=== PATIENT | female | born 1940 | race Caucasian/White ===

== ENCOUNTER 2017-08-29 10:54 | Day surgery (SDC) | payer OTHER ==
[~2017-08-29] VITALS: Ht 160 cm; Wt 46.8 kg
[~2017-08-29 10:54] MED LIST: CLON-365 PO; FENT1PAT77 TD; FORTEO; GABA600T2 PO; HYDR-3237 PO; ONDA4TAB13 SL; SERT50TA5 PO; VENL150T PO
[2017-08-29] MEDS ORDERED: arthritis (11:39)
[2017-08-29 11:43] VITALS: BP 171/91
[2017-08-29] MEDS ORDERED: LACTATED RINGERS 1,000 ML IV SCH (12:12)
[2017-08-29] MEDS ORDERED: MIDAZOLAM 1 MG/ML, 2ML ONE ×2 (13:26→13:54)
[2017-08-29] MEDS ORDERED: FENTANYL PF 100 MCG/2ML ONE (13:26)
[2017-08-29] MEDS ORDERED: PROPOFOL 10 MG/ML, 20ML ONE (13:27)
[2017-08-29] MEDS ORDERED: CEFAZOLIN 1,000 MG ONE ×2 (13:27)
[2017-08-29] MEDS ORDERED: LIDOCAINE-MPF 2% ,5ML ONE (13:27)
[2017-08-29] MEDS ORDERED: SODIUM CHLORIDE 0.9% PF 10ML ONE (13:28)
[2017-08-29] MEDS ORDERED: ONDANSETRON 2MG/ML, 2ML ONE (13:57)
[2017-08-29] MEDS ORDERED: DEXAMETHASONE 4 MG/ML, 1ML ONE (13:57)
[2017-08-29] MEDS ORDERED: MEPERIDINE/PF 25MG/0.5ML IVPush PRN (14:30)
[2017-08-29] MEDS ORDERED: PROMETHAZINE 25 MG/ML, 1ML IV PRN (14:30)
[2017-08-29] MEDS ORDERED: FENTANYL PF 100 MCG/2ML IV PRN (14:30)
[2017-08-29] MEDS ORDERED: HYDROmorphone 1 MG/ML, 1ML IV PRN (14:30)
[2017-08-29] MEDS ORDERED: LABETALOL 5MG/ML, 20ML IV PRN (14:30)
[2017-08-29] MEDS ORDERED: hydrALAzine 20 MG/ML, 1ML IV PRN (14:30)
[2017-08-29] MEDS ORDERED: ONDANSETRON 2MG/ML, 2ML IVPush PRN (14:30)
[2017-08-29] MEDS ORDERED: OXYcodone 5 MG/5 ML ORAL.SOL UDC ONE ×2 (14:43→15:45)
[2017-08-29] MEDS: OXYcodone 5 MG/5 ML ORAL.SOL UDC PO PRN ×2 (14:56→15:45)
[2017-08-29] MEDS ORDERED: hydrALAzine 20 MG/ML, 1ML ONE (14:58)
== END 2017-08-29 16:40 ==
LOC: OUT 10:54
PROVIDERS: ATTEND Surgery Vascular Surgery
DX: M31.6 Other giant cell arteritis (principal); I10 Essential (primary) hypertension
CPT/HCPCS: 37609; 88305; 93005; J0360; J0690; J1100; J2250; J2405; J2704; J3010; J3490; J7120

== ENCOUNTER → 2017-11-18 | Outpatient (CLI) | payer OTHER ==
[~2017-11-18] MED LIST changes: +arthritis
== END | disposition home or self-care (01) ==
LOC: RAD 17:14
PROVIDERS: ATTEND Nurse Practitioner
DX: M79.604 Pain in right leg (principal); M79.89 Other specified soft tissue disorders; R60.0 Localized edema

== ENCOUNTER 2017-11-26 09:22 | Emergency (ER) | payer OTHER ==
[~2017-11-26] VITALS: Ht 160 cm; Wt 47.0 kg
[2017-11-26] MEDS ORDERED: OXYcodone/APAP 5/325MG TABLET ONE (09:55)
[2017-11-26] MEDS ORDERED: OXYcodone/APAP 5/325MG TABLET PO ONE (10:00)
[2017-11-26 10:18] LABS: BASOPHILS # (AUTO) 0.06 x10^3/uL (0-0.1); BASOPHILS % (AUTO) 1 % (0-1); EOSINOPHILS # (AUTO) 0.35 x10^3/uL (0-0.4); EOSINOPHILS % (AUTO) 7 % (1-7); LYMPHOCYTES # (AUTO) 1.41 x10^3/uL (1-3.4); LYMPHOCYTES % (AUTO) 27 % (22-44); MD NO; MEAN CORPUSCULAR HEMOGLOBIN 33.6 pg (27.0-34.8); MEAN CORPUSCULAR HGB CONC 34.3 g/dL (32.4-35.8); MEAN PLATELET VOLUME 9.5 fL (7.4-10.4); MONOCYTES # (AUTO) 0.46 x10^3/uL (0.2-0.8); MONOCYTES % (AUTO) 9 % (2-9); NEUTROPHILS # (AUTO) 2.97 x10^3/uL (1.8-6.8); NEUTROPHILS % (AUTO) 57 % (42-75); PLATELET COUNT 252 x10^3/uL (130-400); RED BLOOD COUNT 3.31 x10^6/uL (3.82-5.3); RED CELL DISTRIBUTION WIDTH 13.9 % (9.6-15.2)
[2017-11-26 10:22] LABS: ALANINE AMINOTRANSFERASE 19 U/L (12-78); ALBUMIN 3.3 g/dL (3.4-5.0); ANION GAP 7 mmol/L (5-15); CALCIUM 8.4 mg/dL (8.5-10.1); CHLORIDE 110 mmol/L (98-107)
[2017-11-26 10:27] LABS: ALKALINE PHOSPHATASE 108 U/L (45-117); BILIRUBIN,TOTAL 0.3 mg/dL (0.2-1.0); TOTAL PROTEIN 6.3 g/dL (6.4-8.2)
[2017-11-26 11:46] VITALS: BP 122/66
== END 2017-11-26 11:48 | disposition home or self-care (01) ==
LOC: ED 09:44
DX: R60.0 Localized edema (principal); M79.671 Pain in right foot; M19.90 Unspecified osteoarthritis, unspecified site
CPT/HCPCS: 36415; 71045; 80053; 83880; 85025; 99285

== ENCOUNTER 2017-12-02 11:15 | Inpatient (IN) | payer OTHER ==
[~2017-12-02] VITALS: Ht 157.5 cm; Wt 48.0 kg
[2017-12-02] MEDS ORDERED: SODIUM CHLORIDE FLUSH 10ML SYR IVF ONE ×2 (12:00→13:30)
[2017-12-02 12:17] LABS: BASOPHILS # (AUTO) 0.02 x10^3/uL (0-0.1); BASOPHILS % (AUTO) 0 % (0-1); EOSINOPHILS % (AUTO) 5 % (1-7); LYMPHOCYTES # (AUTO) 0.76 x10^3/uL (1-3.4); LYMPHOCYTES % (AUTO) 9 % (22-44); MD NO; MEAN CORPUSCULAR HEMOGLOBIN 33.7 pg (27.0-34.8); MEAN CORPUSCULAR HGB CONC 34.2 g/dL (32.4-35.8); MEAN CORPUSCULAR VOLUME 98.7 fL (80-100); MEAN PLATELET VOLUME 9.3 fL (7.4-10.4); MONOCYTES # (AUTO) 0.59 x10^3/uL (0.2-0.8); MONOCYTES % (AUTO) 7 % (2-9); NEUTROPHILS # (AUTO) 6.45 x10^3/uL (1.8-6.8); NEUTROPHILS % (AUTO) 78 % (42-75); PLATELET COUNT 307 x10^3/uL (130-400); RED BLOOD COUNT 3.65 x10^6/uL (3.82-5.3); RED CELL DISTRIBUTION WIDTH 14.2 % (9.6-15.2)
[2017-12-02 12:27] LABS: CHLORIDE 108 mmol/L (98-107)
[2017-12-02] MEDS ORDERED: MORPHINE SULFATE 4 MG/ML, 1ML IVPush PRN (12:30)
[2017-12-02 12:34] LABS: ALANINE AMINOTRANSFERASE 18 U/L (12-78); ALBUMIN 3.8 g/dL (3.4-5.0); ALKALINE PHOSPHATASE 110 U/L (45-117); ANION GAP 8 mmol/L (5-15); BILIRUBIN,TOTAL 0.5 mg/dL (0.2-1.0); CALCIUM 9.8 mg/dL (8.5-10.1); CREATININE 1.06 mg/dL (0.55-1.02)
[2017-12-02] MEDS ORDERED: CEFTRIAXONE PMX 1GM/50ML 50 ML ONE (12:34)
[2017-12-02] MEDS ORDERED: SULF1TAB24 PO (12:55)
[2017-12-02] MEDS ORDERED: CEPH-368 PO (12:55)
[2017-12-02] MEDS ORDERED: GUAIFENESIN/DM 200-20MG, 10ML UDC PO PRN (13:00)
[2017-12-02] MEDS ORDERED: ONDANSETRON 2MG/ML, 2ML IVPush ONE (13:00)
[2017-12-02] MEDS ORDERED: ONDANSETRON ODT 4 MG PO PRN (13:00)
[2017-12-02] MEDS ORDERED: POLYETHYLENE GLYCOL 17 GM PACKET PO PRN (13:00)
[2017-12-02] MEDS ORDERED: ONDANSETRON 2MG/ML, 2ML IVPush PRN (13:00)
[2017-12-02] MEDS ORDERED: CEFTRIAXONE PMX 1GM/50ML 50 ML IVPB ONE (13:00)
[2017-12-02] MEDS ORDERED: VANCOMYCIN PER PHARMACY MC PRN (14:00)
[2017-12-02] MEDS: SODIUM CHLORIDE 0.9% 1,000 ML IV SCH ×2 (15:39→21:55)
[2017-12-02] MEDS: AMPICILLIN/SULBACTAM 3 GM in SODIUM CHLORIDE 0.9% 100 ML IV SCH ×2 (15:39→21:55)
[2017-12-02] MEDS ORDERED: PHARMACOKINETIC CONSULTATION MC ONE (16:30)
[2017-12-02] MEDS ORDERED: VANCOMYCIN PMX 1GM/200ML 200 ML IVPB SCH (16:30)
[2017-12-02] MEDS ORDERED: PHARMACOKINETIC MONITORING MC PRN (16:30)
[2017-12-02 19:32] VITALS: BP 139/77
[2017-12-02] MEDS ORDERED: KETOROLAC 30 MG/1 ML IM PRN (20:00)
[2017-12-02] MEDS: ENOXAPARIN 40 MG/0.4 ML SQ SCH (20:05)
[2017-12-02] MEDS: KETOROLAC 30 MG/1 ML IV PRN (20:50)
[2017-12-02] MEDS ORDERED: TEMAZEPAM 15 MG CAPSULE PO PRN (22:00)
[2017-12-03 01:28] VITALS: BP 156/79
[2017-12-03] MEDS: KETOROLAC 30 MG/1 ML IV PRN ×2 (03:33→09:39)
[2017-12-03] MEDS: AMPICILLIN/SULBACTAM 3 GM in SODIUM CHLORIDE 0.9% 100 ML IV SCH ×3 (03:33→18:39)
[2017-12-03] MEDS ORDERED: ZIPRASIDONE 20 MG INJ IM ONE (05:00)
[2017-12-03 05:53] LABS: ALANINE AMINOTRANSFERASE 15 U/L (12-78); ALBUMIN 2.7 g/dL (3.4-5.0); ANION GAP 7 mmol/L (5-15); BASOPHILS # (AUTO) 0.04 x10^3/uL (0-0.1); BASOPHILS % (AUTO) 1 % (0-1); CALCIUM 8.2 mg/dL (8.5-10.1); CHLORIDE 112 mmol/L (98-107); CREATININE 0.83 mg/dL (0.55-1.02); EOSINOPHILS # (AUTO) 0.71 x10^3/uL (0-0.4); EOSINOPHILS % (AUTO) 11 % (1-7); LYMPHOCYTES # (AUTO) 0.93 x10^3/uL (1-3.4); LYMPHOCYTES % (AUTO) 15 % (22-44); MD NO; MEAN CORPUSCULAR HEMOGLOBIN 33.5 pg (27.0-34.8); MEAN CORPUSCULAR HGB CONC 33.8 g/dL (32.4-35.8); MEAN CORPUSCULAR VOLUME 99.1 fL (80-100); MEAN PLATELET VOLUME 9.6 fL (7.4-10.4); MONOCYTES # (AUTO) 0.64 x10^3/uL (0.2-0.8); MONOCYTES % (AUTO) 10 % (2-9); NEUTROPHILS # (AUTO) 4.02 x10^3/uL (1.8-6.8); NEUTROPHILS % (AUTO) 64 % (42-75); PLATELET COUNT 266 x10^3/uL (130-400); RED CELL DISTRIBUTION WIDTH 13.9 % (9.6-15.2)
[2017-12-03 05:56] LABS: ALKALINE PHOSPHATASE 92 U/L (45-117); BILIRUBIN,TOTAL 0.6 mg/dL (0.2-1.0); TOTAL PROTEIN 5.7 g/dL (6.4-8.2)
[2017-12-03 06:56] VITALS: BP 184/94
[2017-12-03] MEDS: VENLAFAXINE 75 MG CAP ER PO SCH (09:00)
[2017-12-03] MEDS: SENNA/DOCUSATE TABLET PO SCH (09:39)
[2017-12-03] MEDS: SODIUM CHLORIDE 0.9% 1,000 ML IV SCH ×2 (09:44→21:48)
[2017-12-03] MEDS: SERTRALINE 50MG TABLET PO SCH (09:53)
[2017-12-03] MEDS ORDERED: SODIUM PHOSPHATE 4 MEQ/ML IV SCH (12:00)
[2017-12-03] MEDS ORDERED: MAGNESIUM SULFATE PMX 2GM/50ML 50 ML IV ONE (12:00)
[2017-12-03] MEDS ORDERED: SODIUM PHOSPHATE 30 MMOL in SODIUM CHLORIDE 0.9% 500 ML IV ONE (12:00)
[2017-12-03 14:10] VITALS: BP 164/71
[2017-12-03 19:49] VITALS: BP 164/81
[2017-12-03] MEDS: DOXYCYCLINE 100MG TABLET PO SCH (21:47)
[2017-12-03] MEDS: ENOXAPARIN 40 MG/0.4 ML SQ SCH (21:48)
[2017-12-04 01:53] VITALS: BP 146/75
[2017-12-04] MEDS: AMPICILLIN/SULBACTAM 3 GM in SODIUM CHLORIDE 0.9% 100 ML IV SCH ×3 (04:35→18:04)
[2017-12-04] MEDS: SODIUM CHLORIDE 0.9% 1,000 ML IV SCH ×2 (04:38→21:34)
[2017-12-04 05:24] LABS: BASOPHILS # (AUTO) 0.03 x10^3/uL (0-0.1); BASOPHILS % (AUTO) 1 % (0-1); EOSINOPHILS # (AUTO) 0.29 x10^3/uL (0-0.4); EOSINOPHILS % (AUTO) 6 % (1-7); LYMPHOCYTES # (AUTO) 1.29 x10^3/uL (1-3.4); LYMPHOCYTES % (AUTO) 27 % (22-44); MD NO; MEAN CORPUSCULAR HEMOGLOBIN 33.2 pg (27.0-34.8); MEAN CORPUSCULAR VOLUME 97.8 fL (80-100); MEAN PLATELET VOLUME 8.8 fL (7.4-10.4); MONOCYTES # (AUTO) 0.53 x10^3/uL (0.2-0.8); MONOCYTES % (AUTO) 11 % (2-9); NEUTROPHILS # (AUTO) 2.59 x10^3/uL (1.8-6.8); NEUTROPHILS % (AUTO) 55 % (42-75); PLATELET COUNT 263 x10^3/uL (130-400); RED BLOOD COUNT 3.04 x10^6/uL (3.82-5.3); RED CELL DISTRIBUTION WIDTH 13.8 % (9.6-15.2)
[2017-12-04 05:36] LABS: ALANINE AMINOTRANSFERASE 16 U/L (12-78); ALBUMIN 2.9 g/dL (3.4-5.0); ANION GAP 11 mmol/L (5-15); CALCIUM 7.8 mg/dL (8.5-10.1); CHLORIDE 112 mmol/L (98-107); CREATININE 0.58 mg/dL (0.55-1.02)
[2017-12-04 05:38] LABS: ALKALINE PHOSPHATASE 87 U/L (45-117); BILIRUBIN,TOTAL 0.4 mg/dL (0.2-1.0); TOTAL PROTEIN 5.9 g/dL (6.4-8.2)
[2017-12-04 07:52] VITALS: BP 162/77
[2017-12-04] MEDS: VENLAFAXINE 75 MG CAP ER PO SCH (08:48)
[2017-12-04] MEDS: SERTRALINE 50MG TABLET PO SCH (08:50)
[2017-12-04] MEDS: DOXYCYCLINE 100MG TABLET PO SCH ×2 (08:50→20:06)
[2017-12-04] MEDS: SENNA/DOCUSATE TABLET PO SCH (08:53)
[2017-12-04 13:18] VITALS: BP 152/79
[2017-12-04] MEDS: ENOXAPARIN 40 MG/0.4 ML SQ SCH (20:07)
[2017-12-04] MEDS: KETOROLAC 30 MG/1 ML IV PRN (21:34)
[2017-12-04 22:15] VITALS: BP 189/93
[2017-12-04 22:30] VITALS: BP 189/93
[2017-12-04] MEDS: LABETALOL 5MG/ML, 20ML IVPush PRN (23:36)
[2017-12-05] VITALS (8 sets, daily range): BP systolic 147–179; BP diastolic 69–88
[2017-12-05] MEDS: AMPICILLIN/SULBACTAM 3 GM in SODIUM CHLORIDE 0.9% 100 ML IV SCH ×4 (00:18→17:55)
[2017-12-05 05:59] LABS: BASOPHILS # (AUTO) 0.06 x10^3/uL (0-0.1); BASOPHILS % (AUTO) 1 % (0-1); EOSINOPHILS # (AUTO) 0.22 x10^3/uL (0-0.4); EOSINOPHILS % (AUTO) 5 % (1-7); LYMPHOCYTES # (AUTO) 1.26 x10^3/uL (1-3.4); LYMPHOCYTES % (AUTO) 30 % (22-44); MD NO; MEAN CORPUSCULAR HEMOGLOBIN 33.2 pg (27.0-34.8); MEAN CORPUSCULAR HGB CONC 33.9 g/dL (32.4-35.8); MEAN PLATELET VOLUME 9.1 fL (7.4-10.4); MONOCYTES % (AUTO) 12 % (2-9); NEUTROPHILS # (AUTO) 2.14 x10^3/uL (1.8-6.8); NEUTROPHILS % (AUTO) 51 % (42-75); PLATELET COUNT 256 x10^3/uL (130-400); RED BLOOD COUNT 3.06 x10^6/uL (3.82-5.3); RED CELL DISTRIBUTION WIDTH 13.8 % (9.6-15.2)
[2017-12-05 06:04] LABS: ALBUMIN 2.9 g/dL (3.4-5.0); ANION GAP 7 mmol/L (5-15); CALCIUM 8.5 mg/dL (8.5-10.1); CHLORIDE 109 mmol/L (98-107); CREATININE 0.53 mg/dL (0.55-1.02)
[2017-12-05] MEDS ORDERED: POTASSIUM CHLORIDE 20 MEQ TAB.ER.PRT PO ONE ×2 (07:30→11:30)
[2017-12-05] MEDS ORDERED: MAGNESIUM SULFATE PMX 2GM/50ML 50 ML IV ONE (07:30)
[2017-12-05] MEDS: DOXYCYCLINE 100MG TABLET PO SCH ×2 (08:04→20:09)
[2017-12-05] MEDS: SERTRALINE 50MG TABLET PO SCH (08:04)
[2017-12-05] MEDS: SODIUM CHLORIDE 0.9% 1,000 ML IV SCH ×2 (08:04→17:55)
[2017-12-05] MEDS: SENNA/DOCUSATE TABLET PO SCH (08:05)
[2017-12-05] MEDS: VENLAFAXINE 75 MG CAP ER PO SCH (08:05)
[2017-12-05] MEDS: LABETALOL 5MG/ML, 20ML IVPush PRN (08:06)
[2017-12-05] MEDS ORDERED: AMOX1TAB64 PO (16:20)
[2017-12-05] MEDS ORDERED: DOXY100T PO (16:20)
[2017-12-05] MEDS: KETOROLAC 30 MG/1 ML IV PRN (19:41)
[2017-12-05] MEDS: ENOXAPARIN 40 MG/0.4 ML SQ SCH (19:42)
[2017-12-06] MEDS: AMPICILLIN/SULBACTAM 3 GM in SODIUM CHLORIDE 0.9% 100 ML IV SCH ×2 (00:21→06:09)
[2017-12-06 01:28] VITALS: BP 156/82
[2017-12-06] MEDS: KETOROLAC 30 MG/1 ML IV PRN ×2 (02:07→11:52)
[2017-12-06] MEDS: SODIUM CHLORIDE 0.9% 1,000 ML IV SCH (04:44)
[2017-12-06 07:25] VITALS: BP 175/72
[2017-12-06 08:37] VITALS: BP 185/86
[2017-12-06] MEDS: LABETALOL 5MG/ML, 20ML IVPush PRN (08:39)
[2017-12-06] MEDS: DOXYCYCLINE 100MG TABLET PO SCH (08:40)
[2017-12-06] MEDS: VENLAFAXINE 75 MG CAP ER PO SCH (08:40)
[2017-12-06] MEDS: SENNA/DOCUSATE TABLET PO SCH (08:40)
[2017-12-06] MEDS: SERTRALINE 50MG TABLET PO SCH (08:48)
[2017-12-06] MEDS ORDERED: AMLO5TAB2 PO (13:22)
== END 2017-12-06 14:15 | disposition home or self-care (01) | DRG 602 ==
LOC: ED 12:15 → EDIP 12:16 → ED 12:47 → 3NE 16:15
PROVIDERS: ADMIT Hospitalist; ATTEND Hospitalist
DX: L03.115 Cellulitis of right lower limb (principal); E43 Unspecified severe protein-calorie malnutrition; F11.20 Opioid dependence, uncomplicated; Z68.1 Body mass index [BMI] 19.9 or less, adult; D64.9 Anemia, unspecified; E83.42 Hypomagnesemia; E87.6 Hypokalemia; R73.9 Hyperglycemia, unspecified; F32.9 Major depressive disorder, single episode, unspecified; G89.29 Other chronic pain; Z80.51 Family history of malignant neoplasm of kidney; Z90.710 Acquired absence of both cervix and uterus; Z79.899 Other long term (current) drug therapy; Z79.1 Long term (current) use of non-steroidal anti-inflammatories (NSAID)
CPT/HCPCS: 36415; 80048; 80053; 82040; 83605; 83735; 84100; 84439; 85025; 87040; 93970; 96365; 96366; J0295; J0696; J1650; J1885; J3370; J3475; J7030; J7040

== ENCOUNTER 2018-01-09 13:05 | Inpatient (IN) | payer OTHER ==
[~2018-01-09] VITALS: Ht 160 cm; Wt 57.1 kg
[~2018-01-09 13:05] MED LIST changes: +AMLO5TAB2 PO; +AMOX1TAB64 PO; +CEPH-368 PO; +DOXY100T PO; +SULF1TAB24 PO
[2018-01-09] MEDS ORDERED: SODIUM CHLORIDE 0.9% 1,000 ML IV ONE (13:16)
[2018-01-09] MEDS ORDERED: OXYC10TA6 PO (13:22)
[2018-01-09] MEDS ORDERED: GABA300C10 PO (13:22)
[2018-01-09] MEDS ORDERED: SODIUM CHLORIDE FLUSH 10ML SYR IVF ONE (13:30)
[2018-01-09 13:35] LABS: MEAN CORPUSCULAR HEMOGLOBIN 29.7 pg (27.0-34.8); MEAN CORPUSCULAR HGB CONC 32.5 g/dL (32.4-35.8); MEAN CORPUSCULAR VOLUME 91.4 fL (80-100); MEAN PLATELET VOLUME 8.1 fL (7.4-10.4); PLATELET COUNT 546 x10^3/uL (130-400); RED CELL DISTRIBUTION WIDTH 15.5 % (9.6-15.2)
[2018-01-09 13:43] LABS: INTERNATIONAL NORMALIZED RATIO 1.08 (0.93-1.1); PROTHROMBIN TIME 11.1 Seconds (9.6-11.5)
[2018-01-09 13:47] LABS: ALANINE AMINOTRANSFERASE 12 U/L (12-78); ALBUMIN 2.2 g/dL (3.4-5.0); ANION GAP 6 mmol/L (5-15); CALCIUM 7.9 mg/dL (8.5-10.1); CHLORIDE 107 mmol/L (98-107); CREATININE 0.61 mg/dL (0.55-1.02)
[2018-01-09 13:49] LABS: ALKALINE PHOSPHATASE 103 U/L (45-117); BILIRUBIN,TOTAL 0.2 mg/dL (0.2-1.0); TOTAL PROTEIN 6.6 g/dL (6.4-8.2)
[2018-01-09 13:53] LABS: MD YES
[2018-01-09 13:56] LABS: BAND#(MANUAL) 0.79 x10^3/uL; BANDS%(MANUAL) 4 % (0-7); LYMPH#(MANUAL) 1.19 x10^3/uL (1-3.4); LYMPHS% (MANUAL) 6 % (22-44); MONOS#(MANUAL) 0.99 x10^3/uL (0.3-2.7); MONOS% (MANUAL) 5 % (2-9); SEG#(MANUAL) 16.83 x10^3/uL (1.8-6.8); SEGS% (MANUAL) 85 % (42-75)
[2018-01-09 13:57] LABS: <PLATELET ESTIMATE> INCREASED; <PLT MORPHOLOGY> NORMAL PLT MORPH; ANISOCYTOSIS 1+; HYPOCHROMIA 1+; POLYCHROMASIA 1+
[2018-01-09] MEDS ORDERED: CEFTRIAXONE PMX 1GM/50ML 50 ML IVPB ONE (15:30)
[2018-01-09] MEDS ORDERED: SODIUM CHLORIDE 0.9% 1,000ML IVBOLUS ONE (15:30)
[2018-01-09] MEDS ORDERED: MAGNESIUM SULFATE PMX 4GM/100M 100 ML IV ONE (15:30)
[2018-01-09] MEDS ORDERED: CEFTRIAXONE PMX 1GM/50ML 50 ML ONE (16:02)
[2018-01-09] MEDS ORDERED: METRONIDAZOLE PMX 500MG/100ML 100 ML IV ONE (16:30)
[2018-01-09] MEDS ORDERED: POLYETHYLENE GLYCOL 17 GM PACKET PO PRN (17:00)
[2018-01-09] MEDS ORDERED: DOCUSATE 100 MG CAPSULE PO PRN (17:00)
[2018-01-09] MEDS: D5%-0.45NACL+KCL 40MEQ 1,000 ML IV SCH (17:00)
[2018-01-09] MEDS ORDERED: LABETALOL 5MG/ML, 20ML IVPush PRN (17:00)
[2018-01-09] MEDS ORDERED: MORPHINE SULFATE 4 MG/ML, 1ML IVPush PRN (17:00)
[2018-01-09] MEDS ORDERED: BISACODYL 10 MG SUPP PR PRN (17:00)
[2018-01-09] MEDS ORDERED: HYDROcodone/APAP 5/325 TABLET PO PRN (17:00)
[2018-01-09] MEDS ORDERED: ENALAPRILAT 1.25 MG/ML, 2ML IVPush PRN (17:00)
[2018-01-09] MEDS ORDERED: ONDANSETRON ODT 4 MG PO PRN (17:00)
[2018-01-09] MEDS ORDERED: METRONIDAZOLE PMX 500MG/100ML 100 ML ONE (17:41)
[2018-01-09 19:04] LABS: CLOSTRIDIUM DIFFICILE ANTIGEN POSITIVE; CLOSTRIDIUM DIFFICILE TOXIN POSITIVE (Negative)
[2018-01-09] MEDS: GABAPENTIN 300 MG CAPSULE PO SCH (20:56)
[2018-01-09] MEDS: SODIUM CHLORIDE 0.9% 1,000 ML IV SCH (23:50)
[2018-01-10] MEDS ORDERED: METRONIDAZOLE PMX 500MG/100ML 100 ML IV SCH
[2018-01-10] MEDS: SODIUM CHLORIDE 0.9% 1,000 ML IV SCH (00:33)
[2018-01-10] MEDS: D5%-0.45NACL+KCL 40MEQ 1,000 ML IV SCH ×2 (01:06→03:00)
[2018-01-10 02:00] VITALS: BP 162/68
[2018-01-10] MEDS: GABAPENTIN 300 MG CAPSULE PO SCH ×3 (05:06→20:11)
[2018-01-10 05:33] LABS: MEAN CORPUSCULAR HEMOGLOBIN 30.2 pg (27.0-34.8); MEAN CORPUSCULAR HGB CONC 32.9 g/dL (32.4-35.8); MEAN CORPUSCULAR VOLUME 91.6 fL (80-100); MEAN PLATELET VOLUME 8.6 fL (7.4-10.4); PLATELET COUNT 475 x10^3/uL (130-400); RED BLOOD COUNT 3.08 x10^6/uL (3.82-5.3); RED CELL DISTRIBUTION WIDTH 15.6 % (9.6-15.2)
[2018-01-10 05:49] LABS: CHLORIDE 107 mmol/L (98-107)
[2018-01-10 06:01] LABS: ALANINE AMINOTRANSFERASE 10 U/L (12-78); ALKALINE PHOSPHATASE 93 U/L (45-117); ANION GAP 9 mmol/L (5-15); BILIRUBIN,TOTAL 0.6 mg/dL (0.2-1.0); CALCIUM 7.4 mg/dL (8.5-10.1); CHOLESTEROL, TOTAL 98 mg/dL (140-239); CREATININE 0.51 mg/dL (0.55-1.02); FREE T4 (FREE THYROXINE) 1.32 ng/dL (0.76-1.46); HDL CHOL % 34 % (28-40); HDL CHOLESTEROL (DIRECT) 33 mg/dL (40-60); LDL CHOLESTEROL,CALCULATED 45 mg/dL (54-169); LDL/HDL RATIO 1.4 (0.5-3.0); TOTAL PROTEIN 6.1 g/dL (6.4-8.2); TRIGLYCERIDES 101 mg/dL (50-200); VLDL CHOLESTEROL 20 mg/dL (0-25)
[2018-01-10 06:10] LABS: BASOPHILS # (AUTO) 0.01 x10^3/uL (0-0.1); BASOPHILS % (AUTO) 0 % (0-1); EOSINOPHILS # (AUTO) 0.14 x10^3/uL (0-0.4); EOSINOPHILS % (AUTO) 1 % (1-7); LYMPHOCYTES # (AUTO) 0.73 x10^3/uL (1-3.4); LYMPHOCYTES % (AUTO) 4 % (22-44); MD SCAN; MONOCYTES # (AUTO) 1.35 x10^3/uL (0.2-0.8); MONOCYTES % (AUTO) 7 % (2-9); NEUTROPHILS # (AUTO) 16.92 x10^3/uL (1.8-6.8); NEUTROPHILS % (AUTO) 88 % (42-75)
[2018-01-10 06:47] VITALS: BP 154/69
[2018-01-10] MEDS: VANCOMYCIN 50 MG/ML ORAL SUSP PO SCH ×3 (12:10→22:37)
[2018-01-10] MEDS: SERTRALINE 50MG TABLET PO SCH (12:11)
[2018-01-10] MEDS: NS + 20MEQ KCL 1,000 ML IV SCH (12:11)
[2018-01-10] MEDS ORDERED: POTASSIUM PHOSPHATE 22 MEQ in SODIUM CHLORIDE 0.9% 500 ML IV ONE (12:30)
[2018-01-10] MEDS ORDERED: VANCOMYCIN PER PHARMACY MC PRN (12:30)
[2018-01-10] MEDS ORDERED: PHARMACOKINETIC CONSULTATION MC ONE (13:00)
[2018-01-10] MEDS ORDERED: PHARMACOKINETIC MONITORING MC PRN (13:00)
[2018-01-10 13:29] VITALS: BP 133/66
[2018-01-10] MEDS: PIPERACILLIN/TAZO/PMX 3.375GM 50 ML IV SCH ×2 (13:34→20:24)
[2018-01-10] MEDS: VANCOMYCIN PMX 1GM/200ML 200 ML IVPB SCH (14:52)
[2018-01-10] MEDS ORDERED: CEFTRIAXONE PMX 1GM/50ML 50 ML IV SCH (15:30)
[2018-01-10 18:42] LABS: CULTURE INDICATED? YES; MICROSCOPIC INDICATED
[2018-01-10 20:00] VITALS: BP 136/62
[2018-01-11 02:00] VITALS: BP 159/78
[2018-01-11] MEDS: NS + 20MEQ KCL 1,000 ML IV SCH (03:25)
[2018-01-11] MEDS: PIPERACILLIN/TAZO/PMX 3.375GM 50 ML IV SCH ×4 (03:25→20:39)
[2018-01-11] MEDS: VANCOMYCIN 50 MG/ML ORAL SUSP PO SCH ×4 (04:16→22:43)
[2018-01-11] MEDS: GABAPENTIN 300 MG CAPSULE PO SCH ×3 (05:14→20:40)
[2018-01-11 06:35] VITALS: BP 168/72
[2018-01-11] MEDS: SERTRALINE 50MG TABLET PO SCH (09:30)
[2018-01-11] MEDS: IRON SUCROSE COMPLEX 100MG/5ML IV SCH (09:35)
[2018-01-11 13:38] VITALS: BP 127/86
[2018-01-11] MEDS ORDERED: HALOPERIDOL 1 MG TABLET PO PRN (14:00)
[2018-01-11 15:01] LABS: OCCULT BLOOD POSITIVE (NEGATIVE)
[2018-01-11 20:00] VITALS: BP 102/55
[2018-01-12] MEDS: VANCOMYCIN PMX 1GM/200ML 200 ML IVPB SCH (01:36)
[2018-01-12 02:00] VITALS: BP 165/75
[2018-01-12] MEDS: VANCOMYCIN 50 MG/ML ORAL SUSP PO SCH ×3 (04:03→17:03)
[2018-01-12] MEDS: PIPERACILLIN/TAZO/PMX 3.375GM 50 ML IV SCH ×3 (04:03→17:00)
[2018-01-12] MEDS: ACETAMINOPHEN 325 MG TABLET PO PRN ×2 (06:20→16:58)
[2018-01-12] MEDS: GABAPENTIN 300 MG CAPSULE PO SCH ×3 (06:20→20:41)
[2018-01-12] MEDS: SERTRALINE 50MG TABLET PO SCH (11:03)
[2018-01-12 12:05] LABS: BASOPHILS # (AUTO) 0.05 x10^3/uL (0-0.1); BASOPHILS % (AUTO) 1 % (0-1); EOSINOPHILS # (AUTO) 0.21 x10^3/uL (0-0.4); EOSINOPHILS % (AUTO) 2 % (1-7); LYMPHOCYTES # (AUTO) 1.12 x10^3/uL (1-3.4); LYMPHOCYTES % (AUTO) 10 % (22-44); MD NO; MEAN CORPUSCULAR HEMOGLOBIN 30.1 pg (27.0-34.8); MEAN CORPUSCULAR HGB CONC 32.7 g/dL (32.4-35.8); MONOCYTES # (AUTO) 1.13 x10^3/uL (0.2-0.8); MONOCYTES % (AUTO) 10 % (2-9); NEUTROPHILS # (AUTO) 8.71 x10^3/uL (1.8-6.8); NEUTROPHILS % (AUTO) 78 % (42-75); PLATELET COUNT 516 x10^3/uL (130-400); RED BLOOD COUNT 3.09 x10^6/uL (3.82-5.3); RED CELL DISTRIBUTION WIDTH 16.2 % (9.6-15.2)
[2018-01-12 12:16] LABS: ANION GAP 9 mmol/L (5-15); CALCIUM 8.4 mg/dL (8.5-10.1); CHLORIDE 110 mmol/L (98-107); CREATININE 0.55 mg/dL (0.55-1.02)
[2018-01-12] MEDS: IRON SUCROSE COMPLEX 100MG/5ML IV SCH (12:16)
[2018-01-12] MEDS: NS + 20MEQ KCL 1,000 ML IV SCH (17:01)
[2018-01-12 18:20] VITALS: BP 123/68
[2018-01-12 19:45] VITALS: BP 145/70
[2018-01-13] MEDS: PIPERACILLIN/TAZO/PMX 3.375GM 50 ML IV SCH ×3 (00:22→13:00)
[2018-01-13] MEDS: VANCOMYCIN 50 MG/ML ORAL SUSP PO SCH ×3 (00:22→11:50)
[2018-01-13 01:51] VITALS: BP 166/71
[2018-01-13] MEDS: GABAPENTIN 300 MG CAPSULE PO SCH ×2 (06:08→13:00)
[2018-01-13 07:19] VITALS: BP 161/73
[2018-01-13] MEDS: ACETAMINOPHEN 325 MG TABLET PO PRN ×2 (07:44→11:50)
[2018-01-13] MEDS: NS + 20MEQ KCL 1,000 ML IV SCH (09:48)
[2018-01-13] MEDS: SERTRALINE 50MG TABLET PO SCH (09:49)
[2018-01-13] MEDS: IRON SUCROSE COMPLEX 100MG/5ML IV SCH (09:49)
[2018-01-13] MEDS ORDERED: AMPI500C2 PO (12:07)
[2018-01-13] MEDS ORDERED: LISI5TAB7 PO (12:07)
[2018-01-13] MEDS ORDERED: FERR324T5 PO (12:15)
[2018-01-13] MEDS ORDERED: POTASSIUM CHLORIDE 20 MEQ TAB.ER.PRT PO ONE (12:30)
[2018-01-13 15:35] LABS: BASOPHILS # (AUTO) 0.09 x10^3/uL (0-0.1); BASOPHILS % (AUTO) 1 % (0-1); EOSINOPHILS # (AUTO) 0.14 x10^3/uL (0-0.4); EOSINOPHILS % (AUTO) 2 % (1-7); LYMPHOCYTES # (AUTO) 1.17 x10^3/uL (1-3.4); LYMPHOCYTES % (AUTO) 13 % (22-44); MD NO; MEAN CORPUSCULAR HGB CONC 32.8 g/dL (32.4-35.8); MEAN CORPUSCULAR VOLUME 91.5 fL (80-100); MEAN PLATELET VOLUME 8.6 fL (7.4-10.4); MONOCYTES # (AUTO) 0.92 x10^3/uL (0.2-0.8); MONOCYTES % (AUTO) 10 % (2-9); NEUTROPHILS # (AUTO) 6.55 x10^3/uL (1.8-6.8); NEUTROPHILS % (AUTO) 74 % (42-75); PLATELET COUNT 515 x10^3/uL (130-400); RED BLOOD COUNT 3.21 x10^6/uL (3.82-5.3); RED CELL DISTRIBUTION WIDTH 16.1 % (9.6-15.2)
[2018-01-14] MEDS ORDERED: LISINOPRIL 5 MG TABLET PO SCH (09:00)
== END 2018-01-13 16:43 | DRG 871 ==
LOC: ED 15:51 → EDIP 15:52 → ED 15:52 → 4EST 19:08
PROVIDERS: ADMIT Internal Medicine; ATTEND Internal Medicine
PROC: 0T9B70Z Drainage of Bladder with Drainage Device, Via Natural or Artificial Opening (ICD-10-PCS; principal; 2018-01-10)
DX: A41.9 Sepsis, unspecified organism (principal); J18.9 Pneumonia, unspecified organism; J96.01 Acute respiratory failure with hypoxia; E43 Unspecified severe protein-calorie malnutrition; A04.72 Enterocolitis due to Clostridium difficile, not specified as recurrent; J90 Pleural effusion, not elsewhere classified; F05 Delirium due to known physiological condition; F11.20 Opioid dependence, uncomplicated; G45.9 Transient cerebral ischemic attack, unspecified; D50.9 Iron deficiency anemia, unspecified; E07.9 Disorder of thyroid, unspecified; E83.39 Other disorders of phosphorus metabolism; E83.42 Hypomagnesemia; E87.6 Hypokalemia; F32.9 Major depressive disorder, single episode, unspecified; I10 Essential (primary) hypertension; I73.9 Peripheral vascular disease, unspecified; R65.20 Severe sepsis without septic shock; G89.29 Other chronic pain; M19.90 Unspecified osteoarthritis, unspecified site; M54.9 Dorsalgia, unspecified; D47.3 Essential (hemorrhagic) thrombocythemia; Z82.3 Family history of stroke; Z86.73 Personal history of transient ischemic attack (TIA), and cerebral infarction without residual deficits; Z90.710 Acquired absence of both cervix and uterus; Z98.49 Cataract extraction status, unspecified eye; Z68.22 Body mass index [BMI] 22.0-22.9, adult
CPT/HCPCS: 36415; 70450; 70496; 70498; 70551; 71045; 71275; 76700; 80048; 80053; 80061; 81001; 82272; 82728; 83540; 83550; 83605; 83735; 84100; 84145; 84439; 84443; 84466; 85025; 85610; 86850; 86900; 87040; 87077; 87086; 87186; 87324; 93005; 93306; 96360; 96361; J0696; J1756; J2543; J3370; J3480; J3475; J7030; J7040

== ENCOUNTER 2019-03-08 13:18 | Inpatient (IN) | payer OTHER ==
[~2019-03-08] VITALS: Ht 160 cm; Wt 45.7 kg
[~2019-03-08 13:18] MED LIST changes: +AMLO-150 PO; -AMLO5TAB2 PO; +AMPI500C2 PO; -CLON-365 PO; +CLON1TAB11 PO; +FERR324T5 PO; +GABA300C10 PO; -GABA600T2 PO; +GABA600T7 PO; +LISI5TAB7 PO; +OXYC10TA6 PO; +SERT50TA28 PO; -SERT50TA5 PO
[2019-03-08] MEDS ORDERED: LORazepam 1MG TABLET PO ONE (14:00)
[2019-03-08 14:06] LABS: BASOPHILS % (AUTO) 0 % (0-1); EOSINOPHILS # (AUTO) 0.08 x10^3/uL (0-0.4); EOSINOPHILS % (AUTO) 1 % (1-7); LYMPHOCYTES # (AUTO) 0.68 x10^3/uL (1-3.4); LYMPHOCYTES % (AUTO) 8 % (22-44); MD NO; MEAN CORPUSCULAR HEMOGLOBIN 32.7 pg (27.0-34.8); MEAN CORPUSCULAR VOLUME 98.9 fL (80-100); MEAN PLATELET VOLUME 8.9 fL (7.4-10.4); MONOCYTES # (AUTO) 0.42 x10^3/uL (0.2-0.8); MONOCYTES % (AUTO) 5 % (2-9); NEUTROPHILS # (AUTO) 7.47 x10^3/uL (1.8-6.8); NEUTROPHILS % (AUTO) 86 % (42-75); PLATELET COUNT 341 x10^3/uL (130-400); RED BLOOD COUNT 4.14 x10^6/uL (3.82-5.3)
--- NOTE | 2019-03-08 14:12 | NUR ---
SEE TRIAGE NOTE. PT UP TO BSC WITH SBA. URINE COLLECTED/SENT TO LAB. PT ASSISTED WITH UNDRESSING, PLACED IN GOWN. BELONGINGS PLACED IN BAG, NOT REMOVED FROM ROOM D/T PT STATING "PEOPLE HAVE BEEN MESSING WITH MY STUFF". PT DENIES SI, HI. PT ON HEART MONITOR, BP CUFF, PULSE OX. CALL LIGHT WITHIN REACH, WARM BLANKET PROVIDED.
[2019-03-08 14:15] LABS: ALANINE AMINOTRANSFERASE 31 U/L (12-78); ALBUMIN 3.5 g/dL (3.4-5.0); ANION GAP 10 mmol/L (5-15); CALCIUM 9.3 mg/dL (8.5-10.1); CHLORIDE 105 mmol/L (98-107); SALICYLATE LEVEL 2.3 mg/dL (2.8-20.0)
[2019-03-08 14:26] LABS: ALKALINE PHOSPHATASE 110 U/L (45-117); BILIRUBIN,TOTAL 0.3 mg/dL (0.2-1.0); CREATININE 0.81 mg/dL (0.55-1.02); TOTAL PROTEIN 7.5 g/dL (6.4-8.2)
[2019-03-08] MEDS ORDERED: LORazepam 0.5MG TABLET ONE (14:34)
[2019-03-08 14:37] LABS: MICROSCOPIC AUTO
[2019-03-08 14:43] LABS: AMPHETAMINE SCREEN, URINE Negative (Negative); BARBITURATE SCREEN, URINE Negative (Negative); BENZODIAZEPINE SCREEN, URINE Negative (Negative); CANNABINOID SCREEN, URINE Negative (Negative); COCAINE SCREEN, URINE Negative (Negative); METHADONE SCREEN, URINE Negative (Negative); OPIATE SCREEN, URINE Negative (Negative)
[2019-03-08] MEDS ORDERED: AMLO10TA8 PO (14:43)
[2019-03-08 14:44] LABS: CULTURE INDICATED? YES
[2019-03-08] MEDS ORDERED: HYDR25TA11 PO (14:44)
[2019-03-08] MEDS ORDERED: MIRA50TA PO (14:44)
[2019-03-08] MEDS ORDERED: OXYB5TAB7 PO (14:45)
[2019-03-08] MEDS ORDERED: SERT100T32 PO (14:46)
[2019-03-08] MEDS ORDERED: TIZA2TAB PO (14:47)
--- NOTE | 2019-03-08 14:47 | NUR ---
PT GIVEN JUICE AND ATIVAN PER ERP ORDER. PT ADMITS TO ANXIETY R/T "ALL THAT HAS HAPPENED TODAY". CALL LIGHT WITHIN REACH.
[2019-03-08] MEDS ORDERED: CEFDINIR 300 MG CAPSULE PO ONE (15:00)
[2019-03-08] MEDS ORDERED: CEFDINIR 300 MG CAPSULE ONE (15:01)
--- NOTE | 2019-03-08 15:03 | NUR ---
REPORT TO ANCA DAIGLE.
--- NOTE | 2019-03-08 15:07 | NUR ---
REPORT FROM PILO TRAORE. VS UPDATED IN CHART. PATIENT SITTING IN DOMENIC SINGLETON. CALM/COOPERATIVE. ABX ADMINISTERED PER MD ORDER. NO ADITIONAL NEEDS AT THIS TIME, RESULTS BACK, CHART UP FOR RECHECK.
--- NOTE | 2019-03-08 15:36 | NUR ---
PATIENT TO BE ADMITTED FOR ALTERED STATE AND UTI, NO LEGAL HOLD DUE TO DEMENTIA HX. PATIENT TO BE ADMITTED, REFUSING IV, DOES NOT NEED IV TO BE ADMITTED PER DR QUEZADA. PATIENT HAS A DOG AT HOME WITH NO ONE TO CATTLE SORTER AND CARE FOR THE DOG. DAUGHTER IN [place], REVERSER AWARE OF SITUATION. AWAITING FURTHER ORDERS. NO ADDITIONAL NEEDS AT THIS TIME.
--- NOTE | 2019-03-08 16:16 | NUR ---
SW TO CONTACT EPS- DR SUSHANT KAN.
--- NOTE | 2019-03-08 16:27 | NUR ---
TASK RN: PT UPDATED ON STATUS OF DOG. RENT CONTROL OFFICE MANAGER WILL ENGINEERING SCIENTIST DOG AND TAKE CARE DURING HOSPITAL STAY. PT ANGRY AND UNABLE TO COMPLREHEND UPDATES. PT YELLING AT STAFF "YOU'RE TRYING TO TURN MY DAUGHTER AGAINST ME!"PT CONTINUES TO YELL WHILE TALKING ON PHONE. PT REFUSING ADMIT RECOMMENDATION. PLAN TO DC.
--- NOTE | 2019-03-08 16:41 | NUR ---
REPORT FROM JOHNSON MOLINA RN. PATIENT REFUSING TO BE ADMITTED, AWAITING PSYCH MD TO SEE PATIENT. NO ADDITIONAL NEEDS AT THIS TIME, PATIENT SITTING IN DOMENIC SINGLETON.
--- NOTE | 2019-03-08 17:16 | NUR ---
[facility] AT BEDSIDE.
[2019-03-08] MEDS ORDERED: ACETAMINOPHEN 325 MG TABLET PO PRN (17:30)
[2019-03-08] MEDS ORDERED: hydrALAzine 20 MG/ML, 1ML IVPush PRN (17:30)
[2019-03-08] MEDS ORDERED: ONDANSETRON 2MG/ML, 2ML IVPush PRN (17:30)
[2019-03-08] MEDS ORDERED: DOCUSATE 100 MG CAPSULE PO PRN (17:30)
[2019-03-08] MEDS: HEPARIN 5,000 UNITS/ML, 1ML SQ SCH (17:30)
[2019-03-08] MEDS ORDERED: GUAIFENESIN/COD200MG-20MG/10ML LIQUID PO PRN (17:30)
[2019-03-08] MEDS ORDERED: BUTALB/APAP/CAFFEINE 50MG/325MG/40MG PO PRN (17:30)
[2019-03-08] MEDS ORDERED: NITROGLYCERIN 0.4 MG BOTTLE (25 TABS) SL PRN (17:30)
[2019-03-08] MEDS ORDERED: CEFTRIAXONE PMX 1GM/50ML 50 ML IV SCH (17:30)
--- NOTE | 2019-03-08 17:37 | NUR ---
PATIENT SOILED LINENS, CHANGED TO NEW/CLEAN LINENS, VS UPDATED IN CHART. PATIENT AGREEING TO BE ADMITTED AT THIS TIME, ADMIT ORDER IN, NADN. AWAITING BED ASSIGNMENT.
--- NOTE | 2019-03-08 17:50 | NUR ---
PATIENT AGREES TO BE ADMITTED BUT IS REFUSING IV FOR ADMIT, DR CANCHOLA AWARE OF SITUATION, AWAITING BED ASSIGNMENT.
--- NOTE | 2019-03-08 17:57 | NUR ---
PSYCH MD AT BEDSIDE SPEAKING WITH PATIENT.
--- NOTE | 2019-03-08 19:23 | NUR ---
REPORT TO PILO FLOREZ. PATIENT SITTING COMFORTABLY IN DOMENIC SINGLETON. Addendum: 03/08/19 at 1924 by SHIRA CORRECTION: REPORT TO PILO VIRGEN.
--- NOTE | 2019-03-08 19:32 | NUR ---
PATIENT TRANSFERRED/ADMITTED TO HOSPITAL BED UPSTAIRS.
[2019-03-08 20:37] VITALS: BP 164/86
[2019-03-08] MEDS ORDERED: TEMPLATE NON-FORMULARY MED. (Ferrous Sulfate** 324 MG) PO SCH (21:00)
[2019-03-08] MEDS: OXYBUTYNIN CHLORIDE 5 MG TABLET PO SCH (22:15)
[2019-03-08] MEDS: GABAPENTIN 300 MG CAPSULE PO SCH (22:16)
[2019-03-08] MEDS: OXYcodone IR 5MG TABLET PO SCH (22:16)
[2019-03-09 01:16] VITALS: BP 145/78
[2019-03-09] MEDS: HEPARIN 5,000 UNITS/ML, 1ML SQ SCH ×3 (01:30→17:30)
[2019-03-09 06:00] LABS: BASOPHILS # (AUTO) 0.06 x10^3/uL (0-0.1); BASOPHILS % (AUTO) 1 % (0-1); EOSINOPHILS # (AUTO) 0.25 x10^3/uL (0-0.4); EOSINOPHILS % (AUTO) 4 % (1-7); LYMPHOCYTES # (AUTO) 0.92 x10^3/uL (1-3.4); LYMPHOCYTES % (AUTO) 16 % (22-44); MD NO; MEAN CORPUSCULAR HEMOGLOBIN 32.3 pg (27.0-34.8); MEAN CORPUSCULAR HGB CONC 32.9 g/dL (32.4-35.8); MEAN CORPUSCULAR VOLUME 98.2 fL (80-100); MEAN PLATELET VOLUME 9.2 fL (7.4-10.4); MONOCYTES # (AUTO) 0.67 x10^3/uL (0.2-0.8); MONOCYTES % (AUTO) 12 % (2-9); NEUTROPHILS # (AUTO) 3.83 x10^3/uL (1.8-6.8); NEUTROPHILS % (AUTO) 67 % (42-75); PLATELET COUNT 334 x10^3/uL (130-400); RED BLOOD COUNT 3.97 x10^6/uL (3.82-5.3)
[2019-03-09 06:07] LABS: ANION GAP 7 mmol/L (5-15); CHLORIDE 109 mmol/L (98-107)
[2019-03-09 06:09] LABS: CALCIUM 8.8 mg/dL (8.5-10.1); CREATININE 0.77 mg/dL (0.55-1.02)
[2019-03-09 06:52] VITALS: BP 150/77
[2019-03-09] MEDS: TIZANIDINE 2MG TABLET PO SCH (08:53)
[2019-03-09] MEDS: SERTRALINE 100MG TABLET PO SCH (08:54)
[2019-03-09] MEDS: AMLODIPINE 10 MG TAB PO SCH (08:54)
[2019-03-09] MEDS: TEMPLATE NON-FORMULARY MED. (Mirabegron** (Myrbetriq**) 50 MG) HOMEMEDPO SCH (08:54)
[2019-03-09] MEDS: OXYcodone IR 5MG TABLET PO SCH ×3 (08:54→22:13)
[2019-03-09] MEDS: LISINOPRIL 5 MG TABLET PO SCH (08:54)
[2019-03-09] MEDS: OXYBUTYNIN CHLORIDE 5 MG TABLET PO SCH ×2 (08:54→22:13)
[2019-03-09] MEDS: GABAPENTIN 300 MG CAPSULE PO SCH ×3 (08:54→22:13)
[2019-03-09 15:35] VITALS: BP 136/80
[2019-03-09 22:17] VITALS: BP 138/76
[2019-03-10] MEDS: HEPARIN 5,000 UNITS/ML, 1ML SQ SCH ×3 (01:30→17:30)
[2019-03-10 01:35] VITALS: BP 139/80
[2019-03-10 06:05] LABS: ANION GAP 5 mmol/L (5-15); CALCIUM 9.1 mg/dL (8.5-10.1); CHLORIDE 107 mmol/L (98-107)
[2019-03-10 07:16] VITALS: BP 146/77
[2019-03-10] MEDS: TEMPLATE NON-FORMULARY MED. (Mirabegron** (Myrbetriq**) 50 MG) HOMEMEDPO SCH (09:00)
[2019-03-10] MEDS: GABAPENTIN 300 MG CAPSULE PO SCH ×3 (09:26→22:47)
[2019-03-10] MEDS: AMLODIPINE 10 MG TAB PO SCH (09:27)
[2019-03-10] MEDS: SERTRALINE 100MG TABLET PO SCH (09:28)
[2019-03-10] MEDS: TIZANIDINE 2MG TABLET PO SCH (09:29)
[2019-03-10] MEDS: LISINOPRIL 5 MG TABLET PO SCH (09:29)
[2019-03-10] MEDS: OXYcodone IR 5MG TABLET PO SCH ×3 (09:29→22:47)
[2019-03-10] MEDS: OXYBUTYNIN CHLORIDE 5 MG TABLET PO SCH ×2 (09:29→22:47)
[2019-03-10 13:30] VITALS: BP 100/59
[2019-03-10 16:21] LABS: MICROSCOPIC AUTO
[2019-03-10 16:23] LABS: CULTURE INDICATED? YES
[2019-03-10 18:41] VITALS: BP 90/60
[2019-03-11] MEDS: HEPARIN 5,000 UNITS/ML, 1ML SQ SCH ×3 (01:30→17:30)
[2019-03-11 02:45] VITALS: BP 145/71
[2019-03-11 08:16] VITALS: BP 126/53
[2019-03-11] MEDS: TEMPLATE NON-FORMULARY MED. (Mirabegron** (Myrbetriq**) 50 MG) HOMEMEDPO SCH (09:00)
[2019-03-11] MEDS ORDERED: GABAPENTIN 100 MG CAPSULE ONE (11:20)
[2019-03-11] MEDS ORDERED: GABAPENTIN 400 MG CAPSULE ONE (11:21)
[2019-03-11] MEDS: OXYcodone IR 5MG TABLET PO SCH ×3 (11:24→21:20)
[2019-03-11] MEDS: GABAPENTIN 300 MG CAPSULE PO SCH ×3 (11:25→21:20)
[2019-03-11] MEDS: SERTRALINE 100MG TABLET PO SCH (11:25)
[2019-03-11] MEDS: LISINOPRIL 5 MG TABLET PO SCH (11:26)
[2019-03-11] MEDS: TIZANIDINE 2MG TABLET PO SCH (11:26)
[2019-03-11] MEDS: AMLODIPINE 10 MG TAB PO SCH (11:27)
[2019-03-11] MEDS: OXYBUTYNIN CHLORIDE 5 MG TABLET PO SCH ×2 (11:27→21:20)
[2019-03-11 13:10] VITALS: BP 131/72
[2019-03-11 19:23] VITALS: BP 123/67
[2019-03-12 00:53] VITALS: BP 125/75
[2019-03-12] MEDS: HEPARIN 5,000 UNITS/ML, 1ML SQ SCH ×2 (01:30→09:30)
[2019-03-12 07:25] VITALS: BP 134/73
[2019-03-12] MEDS: OXYcodone IR 5MG TABLET PO SCH (10:09)
[2019-03-12] MEDS: GABAPENTIN 300 MG CAPSULE PO SCH (10:09)
[2019-03-12] MEDS: TIZANIDINE 2MG TABLET PO SCH (10:09)
[2019-03-12] MEDS: SERTRALINE 100MG TABLET PO SCH (10:09)
[2019-03-12] MEDS: TEMPLATE NON-FORMULARY MED. (Mirabegron** (Myrbetriq**) 50 MG) HOMEMEDPO SCH (10:10)
[2019-03-12] MEDS: LISINOPRIL 5 MG TABLET PO SCH (10:10)
[2019-03-12] MEDS: AMLODIPINE 10 MG TAB PO SCH (10:10)
[2019-03-12] MEDS: OXYBUTYNIN CHLORIDE 5 MG TABLET PO SCH (10:10)
[2019-03-12 12:45] VITALS: BP 146/76
== END 2019-03-12 17:00 | disposition home health service (06) | DRG 885 ==
LOC: ED 14:38 → EDIP 17:17 → 3NW 17:29 → ED 17:29 → 3NE 19:31 → DCLOUNGE 03-12 16:40
PROVIDERS: ADMIT Internal Medicine; ATTEND Internal Medicine
DX: F23 Brief psychotic disorder (principal); R41.82 Altered mental status, unspecified; F02.80 Dementia in other diseases classified elsewhere, unspecified severity, without behavioral disturbance, psychotic disturbance, mood disturbance, and anxiety; F60.0 Paranoid personality disorder; G30.1 Alzheimer's disease with late onset; I10 Essential (primary) hypertension; N32.81 Overactive bladder; Z82.3 Family history of stroke; Z86.73 Personal history of transient ischemic attack (TIA), and cerebral infarction without residual deficits; Z90.710 Acquired absence of both cervix and uterus; Z80.51 Family history of malignant neoplasm of kidney; Z83.3 Family history of diabetes mellitus
CPT/HCPCS: 36415; 80048; 80053; 80307; 81001; 83735; 84443; 85025; 87086; 93005; 99285; G0378; 92523-GN

== ENCOUNTER 2020-08-12 20:56 | Emergency (ER) | payer OTHER ==
[~2020-08-12] VITALS: Ht 157.5 cm; Wt 45.0 kg
[~2020-08-12 20:56] MED LIST changes: +AMLO-211 PO; +HYDR-826 PO; +MIRA50TA PO; +OXYB5TAB10 PO; +SERT100T32 PO; +TIZA2TAB4 PO
--- NOTE | 2020-08-12 21:23 | NUR ---
CALL TO [facility], SPOKE WITH EMERSON NURSE IN CHARGE AT FACILITY, PER EMERSON PT BECAME BELIGERANT AND THREATENING TO STAFF, AT ONE POINT CAME AFTER STAFF MEMBER WITH SCISSORS. PER EMERSON PT HAS BEEN REFUSING MEDICATIONS OFTEN, AND ARE WORKING ON FINDING OTHER PLACEMENT FOR PT, HOWEVER EMERSON STATES THEY WILL ACCEPT HER BACK IF PT IS CLEARED FOR DISCHARGE TONIGHT IF SHE POSES NO THREAT TO OTHERS.
[2020-08-12 22:31] LABS: MEAN CORPUSCULAR HEMOGLOBIN 33.6 pg (27.0-34.8); MEAN CORPUSCULAR HGB CONC 33.2 g/dL (32.4-35.8); MEAN PLATELET VOLUME 9.1 fL (7.4-10.4); PLATELET COUNT 220 x10^3/uL (130-400); RED BLOOD COUNT 4.09 x10^6/uL (3.82-5.3); RED CELL DISTRIBUTION WIDTH 13.6 % (9.6-15.2)
[2020-08-12 22:44] LABS: ANION GAP 4 mmol/L (5-15); CALCIUM 8.3 mg/dL (8.5-10.1); CHLORIDE 106 mmol/L (98-107); CREATININE 0.73 mg/dL (0.55-1.02)
[2020-08-12 22:52] VITALS: BP 151/85
--- NOTE | 2020-08-12 22:53 | NUR ---
PT RESTING ON GURPACHECO, COOPERATING WITH NURSING INTERVENTIONS. VSS.
--- NOTE | 2020-08-12 23:09 | NUR ---
BEDSIDE REPORT TO TALI RN.
--- NOTE | 2020-08-12 23:15 | NUR ---
Report received from PILO Koroma. This RN to assume care.
--- NOTE | 2020-08-12 23:16 | NUR ---
Awaiting CT results. Patient has no complaints or needs at this time.
[2020-08-12 23:21] LABS: MD YES
[2020-08-12 23:25] LABS: EOS#(MANUAL) 0.04 x10^3/uL (0.0-0.4); EOS% (MANUAL) 1 % (1-7); LYMPH#(MANUAL) 1.09 x10^3/uL (1-3.4); LYMPHS% (MANUAL) 28 % (22-44); MONOS#(MANUAL) 0.82 x10^3/uL (0.3-2.7); MONOS% (MANUAL) 21 % (2-9); SEG#(MANUAL) 1.95 x10^3/uL (1.8-6.8); SEGS% (MANUAL) 50 % (42-75)
[2020-08-12 23:26] LABS: <PLATELET ESTIMATE> ADEQUATE; <PLT MORPHOLOGY> NORMAL PLT MORPH
--- NOTE | 2020-08-13 00:34 | NUR ---
Discharge instructions given. All questions and concerns addressed. Patient ambulatory with a steady gait. Ambulance requested to transport patient back to [facility]. Report given to Janet. She asked for ER staff to have a conversation with patient regarding her behavior at their facility. Spoke with patient and she understood. Awaiting [facility] transport.
--- NOTE | 2020-08-13 01:13 | NUR ---
[facility] arrived; report given. Patient to be transferred to [facility].
== END 2020-08-13 01:16 | disposition home or self-care (01) ==
LOC: ED 08-13 00:26
DX: F03.91 Unspecified dementia, unspecified severity, with behavioral disturbance (principal); R41.82 Altered mental status, unspecified
CPT/HCPCS: 36415; 70450; 80048; 80307; 82040; 85025; 99284